=== PATIENT | female | born 1940 | race Caucasian/White ===

== ENCOUNTER 2017-08-31 08:24 | Emergency (ER) | payer MEDICARE, OTHER ==
[~2017-08-31] VITALS: Ht 162.6 cm; Wt 59.0 kg
[~2017-08-31 08:24] MED LIST: ALPR.25 PO; AMLO10; AMLO10 PO; AMLO10/10 PO; AMLO5; AMLO5 PO; AMOCLA500 PO; AMOX500 PO; ASCO500 PO; ASPI81CH PO; ASPI81EC; ASPI81EC PO; ATOR10; BAYER CHEWABLE81 MG PO; CALCAVITD PO; CARB25 PO; CARBLEV25 PO; CENTRUM SILVER1 EAC2 PO; CIPR500 PO; CLON.3; Colace100 MG PO; DIPH50 PO; DOCU100; DOCU100 PO; DRON2.5 PO; DRON5 PO; DULO30 PO; Diflucan100 MG PO; ERGO400 PO; EZET10 PO; FORTEO; Flagyl500 MG PO; GLUC500 PO; GLUCOSAMINE PO; GUAI100SY PO; HYDACE5325 PO; HYDRA25 PO; ISOMON60ER PO; LACT10SY; LAVAP17G; LAVAP17G PO; LEVFLO250 PO; LEVFLO500 PO; LEVO750; LEVO750 PO; LEVSOD75 PO; Lotrimin Ultra12 GM TP; MELA3 PO; MELATONIN1 MG SL; MELO7.5 PO; METO25ER PO; METO50ER PO; METR500 PO; NITR100CA PO; NUEDEXTA 20-101 EACH PO; OMEP20ER; ONDA4 PO; ONDA4ODT MM; ONDA8 PO; OSEL75CA PO; OXYACE5T PO; PHENA200 PO; PRED10; PRIM250 PO; PRIM50 PO; PROM25S PR; PROP10 PO; PROP80ER PO; Percocet 5-3251 EACH PO; RIVA1.5 PO; ROSU10TA PO; ROSU5 PO; RXPRED10; SENN187; TRAM50 PO; TRAZ50; TRAZ50 PO; VENL150ER PO; VENL75; Vitamin C100 MG; Zofran Odt4 MG SL; Zofran4 MG PO; [UNRECOGNIZED DRUG - MIXTURE] PO; [UNRECOGNIZED DRUG - OTHER] PO
[2017-08-31] MEDS ORDERED: Glucosamine H1500 MG PO (09:12)
[2017-08-31] MEDS ORDERED: ASCO500 PO (09:13)
[2017-08-31] MEDS ORDERED: DRON5 PO (09:14)
[2017-08-31] MEDS ORDERED: RIVASTIGMINE1.5 MG PO (09:15)
[2017-10-19] MEDS ORDERED: PRIM250 PO (22:54)
[2017-10-19] MEDS ORDERED: APLISOL (22:56)
[2017-10-19] MEDS ORDERED: ONE DAILY FOR1 EAC3 PO (22:58)
[2017-10-19] MEDS ORDERED: MULTIVITAMIN (23:00)
[2017-10-19] MEDS ORDERED: VOLTAREN GEL (23:02)
[2017-10-19] MEDS ORDERED: Tylenol325 MG PO (23:07)
[2017-10-19] MEDS ORDERED: SIM PO (23:10)
[2017-10-19] MEDS ORDERED: [UNRECOGNIZED DRUG - OTHER] PO (23:10)
[2017-10-19] MEDS ORDERED: BISA10S PR (23:12)
[2017-10-19] MEDS ORDERED: Fleet Enema132 ML PR (23:14)
[2017-10-19] MEDS ORDERED: LOPE2C PO (23:14)
[2017-10-19] MEDS ORDERED: Milk Of Ma400 MG/5 M PO (23:16)
[2017-10-19] MEDS ORDERED: PROC25S PR (23:19)
[2017-10-19] MEDS ORDERED: TRAM50 PO (23:21)
[2017-10-21] MEDS ORDERED: NITR100CA PO (15:23)
[2017-10-21] MEDS ORDERED: Miralax17 GM PO (15:23)
[2017-10-21] MEDS ORDERED: ONDA4 PO (15:24)
[2017-10-21] MEDS ORDERED: Phos-Nak Packe1 EACH PO (15:25)
[2018-01-20] MEDS ORDERED: COSAMIN DS CAP1 EAC1 PO (16:22)
[2018-01-20] MEDS ORDERED: DOCU100 PO (16:23)
== END 2017-08-31 10:26 | disposition home or self-care (01) ==
LOC: ER 08:24
DX: S01.111A Laceration without foreign body of right eyelid and periocular area, initial encounter (principal); S00.81XA Abrasion of other part of head, initial encounter; F03.90 Unspecified dementia, unspecified severity, without behavioral disturbance, psychotic disturbance, mood disturbance, and anxiety; Z88.0 Allergy status to penicillin; Z88.1 Allergy status to other antibiotic agents; Z88.2 Allergy status to sulfonamides; Z88.5 Allergy status to narcotic agent; Z88.8 Allergy status to other drugs, medicaments and biological substances; Z79.82 Long term (current) use of aspirin; Z79.899 Other long term (current) drug therapy; I10 Essential (primary) hypertension; Z86.73 Personal history of transient ischemic attack (TIA), and cerebral infarction without residual deficits; Z87.891 Personal history of nicotine dependence; W06.XXXA Fall from bed, initial encounter
CPT/HCPCS: 12011; 70450; 72125; 93005; 93010; 99284

== ENCOUNTER → 2018-08-11 | Outpatient (CLI) | payer MEDICARE, OTHER ==
[~2018-08-11] MED LIST changes: +APLISOL; +BISA10S PR; +COSAMIN DS CAP1 EAC1 PO; +Fleet Enema132 ML PR; +Glucosamine H1500 MG PO; +LOPE2C PO; +MULTIVITAMIN; +Milk Of Ma400 MG/5 M PO; +Miralax17 GM PO; +ONE DAILY FOR1 EAC3 PO; +PROC25S PR; +Phos-Nak Packe1 EACH PO; +RIVASTIGMINE1.5 MG PO; +SIM PO; +Tylenol325 MG PO; +VOLTAREN GEL; +[UNRECOGNIZED DRUG - OTHER] PO
[2018-08-11 14:57] LABS: Source, Urine Clean Catch
[2018-08-11 15:30] LABS: Appearance, Urine Hazy (Clear); Bilirubin, Urine Neg (Neg); Blood, Urine Neg (Neg); Color, Urine Yellow (P-Yellow); Glucose Qualitative, Urine Neg (Neg); Ketones, Urine Neg (Neg); Leukocyte Esterase, Urine Neg (Neg); Nitrite, Urine Pos (Neg); Protein, Urine 1+ (Neg); Urobilinogen, Urine NORM (Normal)
[2018-08-11 15:38] LABS: Red Blood Cells, Urine Not Seen /hpf (0-2); Squamous Epithelial Cells Few /hpf (Few); White Blood Cells, Urine 0-2 /hpf (0-5)
[2018-08-11 15:39] LABS: Bacteria Many /hpf
== END | disposition home or self-care (01) ==
LOC: LAB 10:00 → LAB SHORT 10:00
DX: N39.0 Urinary tract infection, site not specified (principal)
CPT/HCPCS: 81001; 87077; 87086; 87186

== ENCOUNTER → 2020-03-28 | Outpatient (CLI) | payer OTHER ==
[2020-03-28 13:51] LABS: Source, Urine Clean Catch
[2020-03-28 15:23] LABS: Bilirubin, Urine Neg (Neg); Blood, Urine 1+ (Neg); Glucose Qualitative, Urine Neg (Neg); Ketones, Urine Neg (Neg); Leukocyte Esterase, Urine 3+ (Neg); Nitrite, Urine Pos (Neg); Protein, Urine Neg (Neg); Urobilinogen, Urine NORM (Normal); pH, Urine 6.5 (5.0-8.0)
[2020-03-28 15:42] LABS: Appearance, Urine Hazy (Clear); Bacteria Many /hpf; Color, Urine Yellow (P-Yellow); Squamous Epithelial Cells Few /hpf (Few); White Blood Cells, Urine 25-50 /hpf (0-5)
== END ==
LOC: LAB SHORT 13:48 → LAB 13:48
PROVIDERS: Family Medicine
DX: N39.0 Urinary tract infection, site not specified (principal)
CPT/HCPCS: 81001; 87077; 87086; 87186

== ENCOUNTER → 2020-05-21 | Outpatient (CLI) | payer OTHER ==
[2020-05-21 19:31] LABS: Appearance, Urine Hazy (Clear); Bilirubin, Urine Neg (Neg); Blood, Urine 1+ (Neg); Color, Urine Amber (P-Yellow); Glucose Qualitative, Urine Neg (Neg); Ketones, Urine 2+ (Neg); Leukocyte Esterase, Urine 2+ (Neg); Nitrite, Urine Pos (Neg); Protein, Urine Neg (Neg); Specific Gravity, Urine 1.025 (1.003-1.022); Urobilinogen, Urine NORM (Normal)
[2020-05-21 19:42] LABS: Bacteria Many /hpf; Red Blood Cells, Urine Rare /hpf (0-2); Squamous Epithelial Cells Few /hpf (Few)
== END | disposition home or self-care (01) ==
LOC: LAB SHORT 19:04 → LAB 19:04
PROVIDERS: Family Medicine
DX: N39.0 Urinary tract infection, site not specified (principal)
CPT/HCPCS: 81001; 87077; 87086; 87186

== ENCOUNTER → 2020-05-28 | Outpatient (CLI) | payer OTHER ==
[2020-05-28 19:47] LABS: Thyroid Stimulating Hormone 0.499 uIU/mL (0.360-4.800)
== END ==
LOC: LAB 16:25
PROVIDERS: Family Medicine
DX: Z51.81 Encounter for therapeutic drug level monitoring (principal); E03.9 Hypothyroidism, unspecified; Z79.899 Other long term (current) drug therapy
CPT/HCPCS: 84439; 84443

== ENCOUNTER → 2020-06-13 | Outpatient (CLI) | payer OTHER ==
[2020-06-13 12:36] LABS: Source, Urine Clean Catch
[2020-06-13 13:54] LABS: Appearance, Urine Hazy (Clear); Bilirubin, Urine Neg (Neg); Blood, Urine 2+ (Neg); Color, Urine Yellow (P-Yellow); Glucose Qualitative, Urine Neg (Neg); Ketones, Urine Neg (Neg); Leukocyte Esterase, Urine 3+ (Neg); Nitrite, Urine Pos (Neg); Protein, Urine Neg (Neg); Specific Gravity, Urine 1.015 (1.003-1.022); Urobilinogen, Urine NORM (Normal)
[2020-06-13 14:20] LABS: Bacteria Many /hpf; Squamous Epithelial Cells Few /hpf (Few); White Blood Cells, Urine 50-100 /hpf (0-5)
== END | disposition home or self-care (01) ==
LOC: LAB 12:34 → LAB SHORT 12:34
PROVIDERS: Family Medicine
DX: N39.0 Urinary tract infection, site not specified (principal)
CPT/HCPCS: 81001; 87077; 87086; 87186

== ENCOUNTER → 2020-12-24 | Outpatient (CLI) | payer OTHER ==
[2020-12-24 14:13] LABS: Alanine Aminotransfer (ALT/SGP 39 U/L (12-78); Albumin, Blood 3.4 g/dL (3.4-5.0); Albumin/Globulin Ratio 0.9 (0.8-1.8); Alk Phos 105 U/L (50-136); Anion Gap 5 mmol/L (6-16); Aspartate Aminotrans (AST/SGOT 21 U/L (12-37); Bilirubin, Total 0.2 mg/dL (0.1-1.0); Blood Urea Nitrogen 20 mg/dL (8-24); Bun/Creatinine Ratio 19.4 (12.0-20.0); CHOL/HDL RATIO 5.6; CO2, Blood 29 mmol/L (21-32); Calcium, Blood 8.8 mg/dL (8.5-10.1); Chloride, Blood 105 mmol/L (98-108); Cholesterol 235 mg/dL (50-200); Creatinine, Blood 1.03 mg/dL (0.40-1.00); Globulin, Blood 3.8 g/dL (2.2-4.0); Glomerular Filtration Rate 55 (60-); Glucose, Blood 97 mg/dL (70-99); HDL Cholesterol 42 mg/dL (>39); LDL/HDL RATIO 2.9; Low Density Lipoprotein Chol 122 mg/dL (0-110); Potassium, Blood 4.3 mmol/L (3.5-5.5); Sodium, Blood 139 mmol/L (136-145); Thyroid Stimulating Hormone 0.741 uIU/mL (0.360-4.800); Thyroxine (T4) 9.7 ug/dL (4.8-13.9); Total Protein, Blood 7.2 g/dL (6.4-8.2); Triglycerides 354 mg/dL (30-160); Very Low Density Lipoprot Chol 70 mg/dL (6-32)
== END ==
LOC: LAB 12:40 → LAB SHORT 12:40
PROVIDERS: Family Medicine
DX: E03.9 Hypothyroidism, unspecified (principal); F02.81 Dementia in other diseases classified elsewhere, unspecified severity, with behavioral disturbance; I10 Essential (primary) hypertension; Z88.6 Allergy status to analgesic agent; Z88.0 Allergy status to penicillin; Z88.2 Allergy status to sulfonamides; Z88.8 Allergy status to other drugs, medicaments and biological substances; Z91.041 Radiographic dye allergy status; Z88.1 Allergy status to other antibiotic agents; Z88.7 Allergy status to serum and vaccine
CPT/HCPCS: 80053; 80061; 84436; 84443

== ENCOUNTER → 2021-01-22 | Outpatient (CLI) | payer OTHER ==
[2021-01-22 19:11] LABS: BASOPHILS ABSOLUTE AUTO 0.07 K/mm3 (0.00-0.23); BASOPHILS PERCENT AUTO 1 % (0-2); EOSINOPHILS ABSOLUTE AUTO 0.33 K/mm3 (0.00-0.68); EOSINOPHILS PERCENT AUTO 5 % (0-6); Hematocrit 42.3 % (33.0-51.0); IMMATURE GRAN ABSOLUTE AUTO 0.01 K/mm3 (0.00-0.10); IMMATURE GRAN PERCENT AUTO 0 % (0-1); LYMPHOCYTES ABSOLUTE AUTO 2.68 K/mm3 (0.84-5.20); LYMPHOCYTES PERCENT AUTO 40 % (21-46); MONOCYTES ABSOLUTE AUTO 0.58 K/mm3 (0.16-1.47); MONOCYTES PERCENT AUTO 9 % (4-13); Mean Corpuscular HGB 34.7 pg (26.0-34.0); Mean Corpuscular HGB Conc 33.1 g/dL (31.5-36.5); Mean Corpuscular Volume 105 fL (80-100); Mean Platelet Volume 12.5 fL (9.1-12.4); NEUTROPHILS ABSOLUTE AUTO 2.98 K/mm3 (1.96-9.15); NEUTROPHILS PERCENT AUTO 45 % (41-73); Platelet Count 205 K/mm3 (150-400); RDW Coefficient Variation 13.4 % (11.7-14.2); RDW Standard Deviation 52.1 fL (35.1-46.3); Red Blood Cell Count 4.04 M/mm3 (3.80-5.20); White Blood Cell Count 6.65 K/mm3 (4.00-11.30)
== END ==
LOC: LAB SHORT 12:43 → LAB 12:43
PROVIDERS: Family Medicine
DX: I10 Essential (primary) hypertension (principal); F02.81 Dementia in other diseases classified elsewhere, unspecified severity, with behavioral disturbance; E03.9 Hypothyroidism, unspecified; Z88.8 Allergy status to other drugs, medicaments and biological substances; Z88.0 Allergy status to penicillin; Z88.2 Allergy status to sulfonamides; Z91.041 Radiographic dye allergy status; Z88.6 Allergy status to analgesic agent; Z88.1 Allergy status to other antibiotic agents; Z88.7 Allergy status to serum and vaccine; Z88.5 Allergy status to narcotic agent
CPT/HCPCS: 85025

== ENCOUNTER → 2021-01-23 | Outpatient (CLI) | payer OTHER ==
[2021-01-23 18:41] LABS: Source, Urine Clean Catch
[2021-01-23 19:30] LABS: Appearance, Urine Hazy (Clear); Bilirubin, Urine Neg (Neg); Blood, Urine Neg (Neg); Color, Urine Yellow (P-Yellow); Glucose Qualitative, Urine Neg (Neg); Ketones, Urine 1+ (Neg); Leukocyte Esterase, Urine 1+ (Neg); Nitrite, Urine Pos (Neg); Protein, Urine 1+ (Neg); Urobilinogen, Urine NORM (Normal)
[2021-01-23 19:42] LABS: Bacteria Many /hpf; Red Blood Cells, Urine Rare /hpf (0-2); Squamous Epithelial Cells Mod /hpf (Few)
== END ==
LOC: LAB SHORT 18:39 → LAB 18:39
PROVIDERS: Family Medicine
DX: N39.0 Urinary tract infection, site not specified (principal); Z88.8 Allergy status to other drugs, medicaments and biological substances; Z88.0 Allergy status to penicillin; Z88.2 Allergy status to sulfonamides; Z88.6 Allergy status to analgesic agent; Z88.5 Allergy status to narcotic agent; Z91.041 Radiographic dye allergy status; Z88.1 Allergy status to other antibiotic agents; Z88.7 Allergy status to serum and vaccine
CPT/HCPCS: 81001; 87077; 87086; 87186

== ENCOUNTER → 2021-02-19 | Outpatient (CLI) | payer OTHER ==
[2021-02-20 09:25] LABS: Source, Urine Clean Catch
[2021-02-20 10:41] LABS: Appearance, Urine Clear (Clear); Bilirubin, Urine Neg (Neg); Blood, Urine Neg (Neg); Color, Urine Yellow (P-Yellow); Glucose Qualitative, Urine Neg (Neg); Ketones, Urine Neg (Neg); Leukocyte Esterase, Urine 1+ (Neg); Nitrite, Urine Pos (Neg); Protein, Urine 1+ (Neg); Urobilinogen, Urine NORM (Normal)
[2021-02-20 12:14] LABS: Bacteria Many /hpf; Red Blood Cells, Urine 0-2 /hpf (0-2); Squamous Epithelial Cells Mod /hpf (Few)
[2021-02-20 12:15] LABS: Hyaline Casts 0-2 /lpf (0-2)
== END | disposition home or self-care (01) ==
LOC: LAB SHORT 16:00 → LAB 16:00
PROVIDERS: Family Medicine
DX: N39.0 Urinary tract infection, site not specified (principal)
CPT/HCPCS: 81001; 87077; 87086; 87186

== ENCOUNTER → 2021-07-01 | Outpatient (CLI) | payer OTHER ==
[~2021-07-01] MED LIST changes: +ATOR10 PO; +CELEXA10 MG PO; +CITALOPRAM HBR PO; +DICLOFENAC SOD100 G1 TOP; +EUTHYROX150 MC1 PO; +FURO20 PO; +FUROSEMIDE40 MG PO; +K-Dur10 MEQ PO; +LEVOTHYROXINE PO; +LOSA50 PO; +NEURONTIN300 MG PO; +OMEP20ER PO; +PRIMIDONE PO; +PROPRANOLOL HCL80 MG PO; +QUETIAPINE FUMA50 M8 PO
[2021-07-01 19:11] LABS: BASOPHILS ABSOLUTE AUTO 0.11 K/mm3 (0.00-0.23); BASOPHILS PERCENT AUTO 2 % (0-2); EOSINOPHILS PERCENT AUTO 6 % (0-6); Hematocrit 44.5 % (33.0-51.0); Hemoglobin 14.7 g/dL (11.5-16.0); IMMATURE GRAN ABSOLUTE AUTO 0.02 K/mm3 (0.00-0.10); IMMATURE GRAN PERCENT AUTO 0 % (0-1); LYMPHOCYTES ABSOLUTE AUTO 3.06 K/mm3 (0.84-5.20); LYMPHOCYTES PERCENT AUTO 42 % (21-46); MONOCYTES PERCENT AUTO 10 % (4-13); Mean Corpuscular HGB 34.2 pg (26.0-34.0); Mean Corpuscular Volume 104 fL (80-100); NEUTROPHILS ABSOLUTE AUTO 3.03 K/mm3 (1.96-9.15); NEUTROPHILS PERCENT AUTO 41 % (41-73); Platelet Count 380 K/mm3 (150-400); RDW Coefficient Variation 13.6 % (11.7-14.2); RDW Standard Deviation 52.5 fL (35.1-46.3); White Blood Cell Count 7.32 K/mm3 (4.00-11.30)
[2021-07-01 19:52] LABS: Alanine Aminotransfer (ALT/SGP 58 U/L (12-78); Albumin, Blood 3.2 g/dL (3.4-5.0); Albumin/Globulin Ratio 0.8 (0.8-1.8); Alk Phos 125 U/L (50-136); Anion Gap 6 mmol/L (6-16); Aspartate Aminotrans (AST/SGOT 39 U/L (12-37); Bilirubin, Total 0.3 mg/dL (0.1-1.0); Blood Urea Nitrogen 23 mg/dL (8-24); CHOL/HDL RATIO 4.7; CO2, Blood 28 mmol/L (21-32); Calcium, Blood 9.3 mg/dL (8.5-10.1); Chloride, Blood 101 mmol/L (98-108); Cholesterol 245 mg/dL (50-200); Creatinine, Blood 0.82 mg/dL (0.40-1.00); Globulin, Blood 4.2 g/dL (2.2-4.0); Glomerular Filtration Rate >60 (60-); Glucose, Blood 148 mg/dL (70-99); HDL Cholesterol 52 mg/dL (>39); LDL/HDL RATIO 2.3; Low Density Lipoprotein Chol 118 mg/dL (0-110); Potassium, Blood 4.2 mmol/L (3.5-5.5); Sodium, Blood 135 mmol/L (136-145); Thyroxine (T4) 10.9 ug/dL (4.8-13.9); Total Protein, Blood 7.4 g/dL (6.4-8.2); Triglycerides 374 mg/dL (30-160); Very Low Density Lipoprot Chol 74 mg/dL (6-32)
[2021-07-01 19:58] LABS: Thyroid Stimulating Hormone 0.568 uIU/mL (0.360-4.800)
== END | disposition home or self-care (01) ==
LOC: LAB SHORT 12:51
PROVIDERS: Family Medicine
DX: I10 Essential (primary) hypertension (principal); E03.9 Hypothyroidism, unspecified; E78.2 Mixed hyperlipidemia
CPT/HCPCS: 80053; 80061; 84436; 84443; 85025

== ENCOUNTER → 2021-09-09 | Outpatient (CLI) | payer OTHER | END | disposition home or self-care (01) | LOC: PLD 08:13 → LAB SHORT 08:13 | DX: L82.1 Other seborrheic keratosis (principal) | CPT/HCPCS: 88305 ==

== ENCOUNTER → 2022-02-08 | Outpatient (CLI) | payer OTHER ==
[~2022-02-08] MED LIST changes: +ALBU90OI INH; +ASPIR 8181 M1 PO; +Hair, Skin & N1 EACH PO; +MIRALAX17 GM PO
[2022-02-08 13:48] LABS: Source, Urine Clean Catch
[2022-02-08 14:27] LABS: Appearance, Urine Hazy (Clear); Bilirubin, Urine Neg (Neg); Blood, Urine Neg (Neg); Color, Urine Yellow (P-Yellow); Glucose Qualitative, Urine Neg (Neg); Ketones, Urine Neg (Neg); Leukocyte Esterase, Urine Neg (Neg); Nitrite, Urine Pos (Neg); Protein, Urine Neg (Neg); Specific Gravity, Urine 1.015 (1.003-1.022); Urobilinogen, Urine NORM (Normal)
[2022-02-08 14:44] LABS: Bacteria Many /hpf; Hyaline Casts 0-2 /lpf (0-2); Squamous Epithelial Cells Few /hpf (Few)
== END | disposition home or self-care (01) ==
LOC: LAB SHORT 10:00
PROVIDERS: Family Medicine
DX: N39.0 Urinary tract infection, site not specified (principal)
CPT/HCPCS: 81001; 87077; 87086; 87186

== ENCOUNTER → 2022-04-05 | Outpatient (CLI) | payer OTHER ==
[2022-04-05 18:56] LABS: Source, Urine Clean Catch
[2022-04-05 19:28] LABS: Appearance, Urine Clear (Clear); Bilirubin, Urine Neg (Neg); Blood, Urine Neg (Neg); Color, Urine Yellow (P-Yellow); Glucose Qualitative, Urine Neg (Neg); Ketones, Urine Neg (Neg); Leukocyte Esterase, Urine 1+ (Neg); Nitrite, Urine Pos (Neg); Protein, Urine Neg (Neg); Specific Gravity, Urine 1.015 (1.003-1.022); Urobilinogen, Urine NORM (Normal)
[2022-04-05 19:34] LABS: Bacteria Many /hpf; Red Blood Cells, Urine 0-2 /hpf (0-2); Squamous Epithelial Cells Mod /hpf (Few)
== END | disposition home or self-care (01) ==
LOC: LAB 18:54 → LAB SHORT 18:54
PROVIDERS: Family Medicine
DX: N39.0 Urinary tract infection, site not specified (principal)
CPT/HCPCS: 81001; 87077; 87086; 87186

== ENCOUNTER → 2022-05-10 | Outpatient (CLI) | payer OTHER ==
[2022-05-10 13:50] LABS: Source, Urine Clean Catch
[2022-05-10 15:59] LABS: Appearance, Urine Clear (Clear); Bilirubin, Urine Neg (Neg); Blood, Urine Neg (Neg); Color, Urine Yellow (P-Yellow); Glucose Qualitative, Urine Neg (Neg); Ketones, Urine Neg (Neg); Leukocyte Esterase, Urine 1+ (Neg); Nitrite, Urine Pos (Neg); Protein, Urine Neg (Neg); Urobilinogen, Urine NORM (Normal)
[2022-05-10 16:25] LABS: Bacteria Many /hpf; Red Blood Cells, Urine 0-2 /hpf (0-2); Squamous Epithelial Cells Few /hpf (Few)
== END | disposition home or self-care (01) ==
LOC: LAB SHORT 13:48 → LAB 13:48
PROVIDERS: Family Medicine
DX: N39.0 Urinary tract infection, site not specified (principal)
CPT/HCPCS: 81001; 87077; 87086; 87186

== ENCOUNTER → 2022-07-20 | Outpatient (CLI) | payer OTHER ==
[2022-07-20 18:36] LABS: Source, Urine Clean Catch
[2022-07-20 19:33] LABS: Appearance, Urine Hazy (Clear); Bilirubin, Urine Neg (Neg); Blood, Urine Neg (Neg); Glucose Qualitative, Urine Neg (Neg); Ketones, Urine Neg (Neg); Leukocyte Esterase, Urine Neg (Neg); Nitrite, Urine Pos (Neg); Protein, Urine Neg (Neg); Specific Gravity, Urine 1.015 (1.003-1.022); Urobilinogen, Urine NORM (Normal)
[2022-07-20 19:53] LABS: Color, Urine Pale Yellow (P-Yellow)
[2022-07-20 19:54] LABS: Bacteria Many /hpf; Red Blood Cells, Urine 0-2 /hpf (0-2); Squamous Epithelial Cells Mod /hpf (Few)
[2022-07-20 19:56] LABS: Amorphous Light (0-Heavy)
== END | disposition home or self-care (01) ==
LOC: LAB SHORT 14:40
PROVIDERS: Family Medicine
DX: N39.0 Urinary tract infection, site not specified (principal)
CPT/HCPCS: 81001

== ENCOUNTER → 2022-08-09 | Outpatient (CLI) | payer OTHER ==
[2022-08-10 19:17] LABS: Bilirubin, Urine Neg (Neg); Blood, Urine Neg (Neg); Glucose Qualitative, Urine Neg (Neg); Ketones, Urine Neg (Neg); Leukocyte Esterase, Urine 3+ (Neg); Nitrite, Urine Pos (Neg); Protein, Urine Neg (Neg); Urobilinogen, Urine NORM (Normal); pH, Urine 6.5 (5.0-8.0)
[2022-08-10 19:42] LABS: Appearance, Urine Hazy (Clear); Color, Urine Pale Yellow (P-Yellow)
[2022-08-10 19:43] LABS: Bacteria Mod /hpf; Red Blood Cells, Urine 0-2 /hpf (0-2); Squamous Epithelial Cells Few /hpf (Few)
== END | disposition home or self-care (01) ==
LOC: LAB SHORT 21:00
PROVIDERS: Family Medicine
DX: N39.0 Urinary tract infection, site not specified (principal)
CPT/HCPCS: 81001; 87077; 87086; 87186

== ENCOUNTER → 2022-12-30 | Outpatient (CLI) | payer OTHER ==
[2022-12-31 12:23] LABS: Source, Urine Clean Catch
[2022-12-31 13:37] LABS: Appearance, Urine Clear (Clear); Bilirubin, Urine Neg (Neg); Blood, Urine Neg (Neg); Color, Urine Yellow (P-Yellow); Glucose Qualitative, Urine Neg (Neg); Ketones, Urine Neg (Neg); Leukocyte Esterase, Urine 1+ (Neg); Nitrite, Urine Pos (Neg); Protein, Urine 1+ (Neg); Specific Gravity, Urine 1.015 (1.003-1.022); Urobilinogen, Urine NORM (Normal)
[2022-12-31 13:56] LABS: Amorphous Mod (0-Heavy); Bacteria Many /hpf; Mucus Light (0-Heavy); Red Blood Cells, Urine 0-2 /hpf (0-2); Squamous Epithelial Cells Rare /hpf (Few); White Blood Cells, Urine 0-2 /hpf (0-5)
== END | disposition home or self-care (01) ==
LOC: LAB SHORT 12:22 → LAB 12:22
PROVIDERS: Family Medicine
DX: N39.0 Urinary tract infection, site not specified (principal)
CPT/HCPCS: 81001; 87077; 87086; 87186

== ENCOUNTER → 2023-01-23 | Outpatient (CLI) | payer OTHER ==
[2023-01-26 12:25] LABS: Source, Urine Clean Catch
[2023-01-26 13:11] LABS: Appearance, Urine Hazy (Clear); Bilirubin, Urine Neg (Neg); Blood, Urine Neg (Neg); Color, Urine Yellow (P-Yellow); Glucose Qualitative, Urine Neg (Neg); Ketones, Urine Neg (Neg); Leukocyte Esterase, Urine Neg (Neg); Nitrite, Urine Pos (Neg); Protein, Urine Neg (Neg); Specific Gravity, Urine 1.015 (1.003-1.022); Urobilinogen, Urine NORM (Normal)
[2023-01-26 13:30] LABS: Bacteria Few /hpf; Red Blood Cells, Urine 0-2 /hpf (0-2); Squamous Epithelial Cells Few /hpf (Few); White Blood Cells, Urine 0-2 /hpf (0-5)
== END | disposition home or self-care (01) ==
LOC: LAB 14:30 → LAB SHORT 14:30
PROVIDERS: Family Medicine
DX: N39.0 Urinary tract infection, site not specified (principal)
CPT/HCPCS: 81001; 87077; 87086; 87186

== ENCOUNTER → 2023-02-15 | Outpatient (CLI) | payer OTHER ==
[2023-02-15 14:29] LABS: Source, Urine Clean Catch
[2023-02-15 15:46] LABS: Appearance, Urine Clear (Clear); Bilirubin, Urine Neg (Neg); Blood, Urine Neg (Neg); Color, Urine Yellow (P-Yellow); Glucose Qualitative, Urine Neg (Neg); Ketones, Urine Neg (Neg); Leukocyte Esterase, Urine 2+ (Neg); Nitrite, Urine Neg (Neg); Protein, Urine Neg (Neg); Urobilinogen, Urine NORM (Normal)
[2023-02-15 16:05] LABS: Bacteria Many /hpf; Red Blood Cells, Urine 0-2 /hpf (0-2); Squamous Epithelial Cells Few /hpf (Few)
== END | disposition home or self-care (01) ==
LOC: LAB SHORT 14:27 → LAB 14:27
PROVIDERS: Family Medicine
DX: N39.0 Urinary tract infection, site not specified (principal)
CPT/HCPCS: 81001; 87077; 87086; 87186

== ENCOUNTER 2023-05-07 11:18 | Emergency (ER) | payer OTHER ==
[~2023-05-07] VITALS: Ht 157.5 cm; Wt 82.1 kg
[2023-05-07] MEDS ORDERED: Norco 5-325 Ta1 EACH PO (13:27)
[2023-05-07 13:45] VITALS: BP 147/85
== END 2023-05-07 15:53 | disposition home or self-care (01) ==
LOC: ER 11:18
DX: S32.018A Other fracture of first lumbar vertebra, initial encounter for closed fracture (principal); X50.0XXA Overexertion from strenuous movement or load, initial encounter; G20.A1 Parkinson's disease without dyskinesia, without mention of fluctuations; F02.80 Dementia in other diseases classified elsewhere, unspecified severity, without behavioral disturbance, psychotic disturbance, mood disturbance, and anxiety; I10 Essential (primary) hypertension; Z87.891 Personal history of nicotine dependence; Z88.0 Allergy status to penicillin; Z88.1 Allergy status to other antibiotic agents; Z88.5 Allergy status to narcotic agent; Z88.2 Allergy status to sulfonamides; Z88.8 Allergy status to other drugs, medicaments and biological substances; Z88.7 Allergy status to serum and vaccine; Z91.048 Other nonmedicinal substance allergy status; Z79.899 Other long term (current) drug therapy; Z79.82 Long term (current) use of aspirin
CPT/HCPCS: 71045; 72070; 72100; 99285-25

== ENCOUNTER → 2023-06-28 | Outpatient (CLI) | payer OTHER ==
[~2023-06-28] MED LIST changes: +Norco 5-325 Ta1 EACH PO
[2023-06-28 15:07] LABS: Source, Urine Clean Catch
[2023-06-28 16:45] LABS: Appearance, Urine Hazy (Clear); Bilirubin, Urine Neg (Neg); Blood, Urine Neg (Neg); Color, Urine Yellow (P-Yellow); Glucose Qualitative, Urine Neg (Neg); Ketones, Urine Neg (Neg); Leukocyte Esterase, Urine 1+ (Neg); Nitrite, Urine Neg (Neg); Protein, Urine Neg (Neg); Specific Gravity, Urine 1.015 (1.003-1.022); Urobilinogen, Urine NORM (Normal)
[2023-06-28 17:06] LABS: Bacteria Many /hpf; Red Blood Cells, Urine 0-2 /hpf (0-2); Squamous Epithelial Cells Few /hpf (Few)
== END | disposition home or self-care (01) ==
LOC: LAB SHORT 15:05 → LAB 15:05
PROVIDERS: Physician Assistant
DX: N39.0 Urinary tract infection, site not specified (principal)
CPT/HCPCS: 81001; 87077; 87086; 87186

== ENCOUNTER 2023-07-11 10:50 | Emergency (ER) | payer OTHER ==
[~2023-07-11] VITALS: Ht 165.1 cm; Wt 86.2 kg
[2023-07-11 11:41] LABS: BASOPHILS ABSOLUTE AUTO 0.06 K/mm3 (0.00-0.23); BASOPHILS PERCENT AUTO 1 % (0-2); EOSINOPHILS ABSOLUTE AUTO 0.42 K/mm3 (0.00-0.68); EOSINOPHILS PERCENT AUTO 6 % (0-6); Hematocrit 44.4 % (33.0-51.0); Hemoglobin 14.5 g/dL (11.5-16.0); IMMATURE GRAN ABSOLUTE AUTO 0.02 K/mm3 (0.00-0.10); IMMATURE GRAN PERCENT AUTO 0 % (0-1); LYMPHOCYTES ABSOLUTE AUTO 2.78 K/mm3 (0.84-5.20); LYMPHOCYTES PERCENT AUTO 39 % (21-46); MONOCYTES ABSOLUTE AUTO 0.54 K/mm3 (0.16-1.47); MONOCYTES PERCENT AUTO 8 % (4-13); Mean Corpuscular HGB 33.9 pg (26.0-34.0); Mean Corpuscular HGB Conc 32.7 g/dL (31.5-36.5); Mean Corpuscular Volume 104 fL (80-100); Mean Platelet Volume 11.2 fL (9.1-12.4); NEUTROPHILS ABSOLUTE AUTO 3.32 K/mm3 (1.96-9.15); NEUTROPHILS PERCENT AUTO 47 % (41-73); Platelet Count 199 K/mm3 (150-400); RDW Coefficient Variation 12.9 % (11.7-14.2); Red Blood Cell Count 4.28 M/mm3 (3.80-5.20); White Blood Cell Count 7.14 K/mm3 (4.00-11.30)
[2023-07-11 11:59] LABS: Albumin/Globulin Ratio 0.6 (0.8-1.8); Bilirubin, Total 0.2 mg/dL (0.1-1.0); Bun/Creatinine Ratio 17.4 (12.0-20.0); Calcium, Blood 8.7 mg/dL (8.5-10.1); Creatinine, Blood 0.92 mg/dL (0.40-1.00); Globulin, Blood 4.7 g/dL (2.2-4.0); Potassium, Blood 4.2 mmol/L (3.5-5.5); Total Protein, Blood 7.7 g/dL (6.4-8.2)
[2023-07-11 12:45] LABS: Influenza A, PCR NEGATIVE (NEGATIVE); Influenza B, PCR NEGATIVE (NEGATIVE); Resp Syncytial Virus, PCR NEGATIVE (NEGATIVE); SARS-Cov-2 (COVID-19) PCR, MMC NEGATIVE (NEGATIVE)
[2023-07-11] MEDS ORDERED: ALBU90OI INH (14:00)
[2023-07-11 17:30] VITALS: BP 122/98
[2023-07-12] MEDS ORDERED: ACET325 PO (08:03)
[2023-07-12] MEDS ORDERED: ALUM-MAG HYDRO360 M1 PO (08:04)
[2023-07-12] MEDS ORDERED: BISA10S PR (08:07)
[2023-07-12] MEDS ORDERED: [UNRECOGNIZED DRUG - OTHER] MM (08:09)
[2023-07-12] MEDS ORDERED: CRANBERRY450 M1 PO (08:12)
[2023-07-12] MEDS ORDERED: BENADRYL25 MG PO (08:13)
[2023-07-12] MEDS ORDERED: Fleet Enema132 ML PR (08:14)
[2023-07-12] MEDS ORDERED: FLUO10 PO (08:15)
[2023-07-12] MEDS ORDERED: LOPE2C PO (08:17)
[2023-07-12] MEDS ORDERED: LOSA25 PO (08:18)
[2023-07-12] MEDS ORDERED: Milk of Magnesia PO (08:20)
[2023-07-12] MEDS ORDERED: NYAMYC15 G1 TOP (08:21)
[2023-07-12] MEDS ORDERED: ONDA4 PO (08:22)
== END 2023-07-11 17:45 | disposition home or self-care (01) ==
LOC: ER 10:50
PROVIDERS: Emergency Medicine
DX: J44.1 Chronic obstructive pulmonary disease with (acute) exacerbation (principal); Z20.822 Contact with and (suspected) exposure to COVID-19; Z66 Do not resuscitate; Z87.891 Personal history of nicotine dependence
CPT/HCPCS: 0241U; 71046; 80053; 83880; 84484; 85025; 93005; 93010; 94640; 94664; 96374; 99284-25; J2930

== ENCOUNTER 2023-07-11 22:03 | Observation (INO) | payer OTHER ==
[~2023-07-11] VITALS: Ht 157.5 cm; Wt 77.5 kg
[2023-07-11 22:28] LABS: BASOPHILS ABSOLUTE AUTO 0.03 K/mm3 (0.00-0.23); BASOPHILS PERCENT AUTO 1 % (0-2); Base Excess Venous 6.1 mmol/L; EOSINOPHILS ABSOLUTE AUTO 0.07 K/mm3 (0.00-0.68); EOSINOPHILS PERCENT AUTO 1 % (0-6); Hematocrit 41.9 % (33.0-51.0); Hemoglobin 13.8 g/dL (11.5-16.0); IMMATURE GRAN ABSOLUTE AUTO 0.04 K/mm3 (0.00-0.10); IMMATURE GRAN PERCENT AUTO 1 % (0-1); LYMPHOCYTES ABSOLUTE AUTO 2.91 K/mm3 (0.84-5.20); LYMPHOCYTES PERCENT AUTO 44 % (21-46); MONOCYTES ABSOLUTE AUTO 0.41 K/mm3 (0.16-1.47); MONOCYTES PERCENT AUTO 6 % (4-13); Mean Corpuscular HGB 33.3 pg (26.0-34.0); Mean Corpuscular HGB Conc 32.9 g/dL (31.5-36.5); Mean Corpuscular Volume 101 fL (80-100); Mean Platelet Volume 11.4 fL (9.1-12.4); NEUTROPHILS ABSOLUTE AUTO 3.19 K/mm3 (1.96-9.15); NEUTROPHILS PERCENT AUTO 48 % (41-73); PCO2 Venous 44.7 mmHg (38-42); Platelet Count 229 K/mm3 (150-400); RDW Coefficient Variation 12.6 % (11.7-14.2); Red Blood Cell Count 4.14 M/mm3 (3.80-5.20); White Blood Cell Count 6.65 K/mm3 (4.00-11.30); pH Blood Venous 7.44 (7.34-7.37)
[2023-07-11 22:50] LABS: Bun/Creatinine Ratio 19.8 (12.0-20.0); Calcium, Blood 8.5 mg/dL (8.5-10.1); Creatinine, Blood 0.81 mg/dL (0.40-1.00); Potassium, Blood 4.4 mmol/L (3.5-5.5)
[2023-07-12 01:13] VITALS: BP 136/62
[2023-07-12 06:11] LABS: Albumin, Blood 2.9 g/dL (3.4-5.0); Albumin/Globulin Ratio 0.7 (0.8-1.8); Bilirubin, Total 0.3 mg/dL (0.1-1.0); Bun/Creatinine Ratio 22.1 (12.0-20.0); Calcium, Blood 8.7 mg/dL (8.5-10.1); Creatinine, Blood 0.81 mg/dL (0.40-1.00); Globulin, Blood 4.4 g/dL (2.2-4.0); Magnesium, Blood 2.2 mg/dL (1.6-2.4); Potassium, Blood 4.2 mmol/L (3.5-5.5); Total Protein, Blood 7.3 g/dL (6.4-8.2)
--- NOTE | 2023-07-12 06:34 | NUR ---
Shift Summary Patient arrived to the floor by stretcher from the ER around 1 am. She was admitted due to Respiratory failure. She is awake and alert. She is oriented to person, place and situation. She is slow to answer and does not remeber some things. 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 She says that she does get up to the wheelchair. She denies any falls. She was not able to remeber all of her medications or exactly when she took them last. She has oxygen per NC at 3 LPM. Her baseline is room air. She has weakness of the left arm and is unable to move her left leg. She says this is due to a prior stroke. Patient's skin is intact. She has a small scratch on her right goncalves. Skin check was done with Bettie Celis RN. Lungs are clear. Bowel sounds active. Radial pulses are stron bilaterally. Pedal pulses are strong bilaterally. Capillary refill is less than 3 seconds. Patient says that she usually wears glasses. Her hearing is good. She does not wear any dentures. I was unable to put the regular assessment in due to computer locking up and not letting me finish the admission assessment.
[2023-07-12 07:17] VITALS: BP 149/69
[2023-07-12 07:57] LABS: BASOPHILS ABSOLUTE AUTO 0.05 K/mm3 (0.00-0.23); BASOPHILS PERCENT AUTO 1 % (0-2); EOSINOPHILS ABSOLUTE AUTO 0.42 K/mm3 (0.00-0.68); EOSINOPHILS PERCENT AUTO 5 % (0-6); Hematocrit 40.6 % (33.0-51.0); Hemoglobin 13.6 g/dL (11.5-16.0); IMMATURE GRAN ABSOLUTE AUTO 0.03 K/mm3 (0.00-0.10); IMMATURE GRAN PERCENT AUTO 0 % (0-1); LYMPHOCYTES ABSOLUTE AUTO 3.56 K/mm3 (0.84-5.20); LYMPHOCYTES PERCENT AUTO 40 % (21-46); MONOCYTES ABSOLUTE AUTO 0.83 K/mm3 (0.16-1.47); MONOCYTES PERCENT AUTO 9 % (4-13); Mean Corpuscular HGB 33.9 pg (26.0-34.0); Mean Corpuscular HGB Conc 33.5 g/dL (31.5-36.5); Mean Corpuscular Volume 101 fL (80-100); Mean Platelet Volume 11.2 fL (9.1-12.4); NEUTROPHILS ABSOLUTE AUTO 4.04 K/mm3 (1.96-9.15); NEUTROPHILS PERCENT AUTO 45 % (41-73); Platelet Count 204 K/mm3 (150-400); RDW Coefficient Variation 12.8 % (11.7-14.2); RDW Standard Deviation 47.9 fL (35.1-46.3); Red Blood Cell Count 4.01 M/mm3 (3.80-5.20); White Blood Cell Count 8.93 K/mm3 (4.00-11.30)
[2023-07-12] MEDS ORDERED: ACET325 PO (08:03)
[2023-07-12] MEDS ORDERED: ALUM-MAG HYDRO360 M1 PO (08:04)
[2023-07-12] MEDS ORDERED: BISA10S PR (08:07)
[2023-07-12] MEDS ORDERED: [UNRECOGNIZED DRUG - OTHER] MM (08:09)
[2023-07-12] MEDS ORDERED: CRANBERRY450 M1 PO (08:12)
[2023-07-12] MEDS ORDERED: BENADRYL25 MG PO (08:13)
[2023-07-12] MEDS ORDERED: Fleet Enema132 ML PR (08:14)
[2023-07-12] MEDS ORDERED: FLUO10 PO (08:15)
[2023-07-12] MEDS ORDERED: LOPE2C PO (08:17)
[2023-07-12] MEDS ORDERED: LOSA25 PO (08:18)
[2023-07-12] MEDS ORDERED: Milk of Magnesia PO (08:20)
[2023-07-12] MEDS ORDERED: NYAMYC15 G1 TOP (08:21)
[2023-07-12] MEDS ORDERED: ONDA4 PO (08:22)
--- NOTE | 2023-07-12 17:20 | NUR ---
[place] SUMMARY PT TRANSITIONED TO COMFORT CARE TODAY. PRIOR TO THIS ME WAS SEEN BY ST AND STARTED ON A HONEY THICK LIQUID. PT REFUSED TO DRINK THIS AND STATED "I JUST WANT TO " TO THE SPEECH THERAPIST. PT ALSO TOLD THIS RN "I WAS TO GO HOME AND ON HOSPICE". PALLIATIVE CARE CONSLUTED AND WORKED TO CONTACT PHYSICIAN AND FAMILY. PT DENIES NEED FOR PAIN MEDS AT THIS TIME. PT DID ACCEPT SOME TYLENOL THIS AM, STATING IT DID NOT HELP HER BACK PAIN. PT REFUSING HONEY THICK LIQUID AND DRINKING ROOT BEER. PT EDUCATED TO SIT UPRIGHT AND NOT TO USE A STRAW TO HELP PREVENT ASPIRATION. PT STATES SHE UNDERSTANDS. NO OTHER ACUTE CHANGES IN ASSESSMENT AT THIS TIME. VS REVIEWED. CALL LIGHT IN REACH. DENIES OTHER NEEDS AT THIS TIME.
--- NOTE | 2023-07-13 04:51 | NUR ---
SHIFT SUMMARY PATIENT ON COMFORT CARE. AXO 2-3 AND BEDREST. REFUSED TO PUT HER OXYGEN 2L NC BACK ON AFTER PULLING OFF. DENIES CHEST PAIN, SOB, AND N/V. BILATERAL FOOT DROP. SLEPT ON/OFF THROUGHOUT SHIFT. CALL LIGHT IN REACH. BED IN LOWEST POSITION. WILL CONTINUE TO MONITOR UNTIL DAY SHIFT NURSE ASSUMES CARE.
--- NOTE | 2023-07-13 19:34 | NUR ---
SHIFT SUMMARY: ON COMFORT CARE. DECLINED ALL PO INTAKE. DECLINED PAIN MEDICATIONS. WEARING ATTENDS, LBM TODAY. ALERT TO SELF ONLY. PLAN IS FOR HER TO D/C TO [facility] TOMORROW MORNING ON HOSPICE.
[2023-07-14] MEDS ORDERED: PROM25 PO (09:48)
--- NOTE | 2023-07-14 10:07 | NUR ---
PATIENT DISCHARGED BACK TO [facility] ON HOSPICE VIA AMBULANCE. OFF UNIT AT 1007. NO PERSONAL BELONGINGS LEFT BEHIND IN ROOM.
== END 2023-07-14 10:06 | disposition hospice, home (50) ==
LOC: ER 22:03 → MEDS 22:04
PROVIDERS: Emergency Medicine; ADMIT Student in an Organized Health Care Education/Training Program
DX: J69.0 Pneumonitis due to inhalation of food and vomit (principal); J96.01 Acute respiratory failure with hypoxia; J96.02 Acute respiratory failure with hypercapnia; I10 Essential (primary) hypertension; R13.10 Dysphagia, unspecified; G20.A1 Parkinson's disease without dyskinesia, without mention of fluctuations; F02.80 Dementia in other diseases classified elsewhere, unspecified severity, without behavioral disturbance, psychotic disturbance, mood disturbance, and anxiety; Z86.73 Personal history of transient ischemic attack (TIA), and cerebral infarction without residual deficits; Z88.0 Allergy status to penicillin; Z88.1 Allergy status to other antibiotic agents; Z88.5 Allergy status to narcotic agent; Z88.2 Allergy status to sulfonamides; Z91.048 Other nonmedicinal substance allergy status; Z88.7 Allergy status to serum and vaccine; Z88.8 Allergy status to other drugs, medicaments and biological substances; Z79.899 Other long term (current) drug therapy; Z79.890 Hormone replacement therapy; Z79.82 Long term (current) use of aspirin; Z87.891 Personal history of nicotine dependence
CPT/HCPCS: 36415; 71045; 80048; 80053; 82803; 83735; 84145; 84484; 85025; 92610; 93005; 93010; 94640; 94664; 94762; 96372; 99285-25; A9270; G0378; J1650